=== PATIENT | female | born 1970 | race Caucasian/White ===

== ENCOUNTER 2016-11-26 20:47 | Emergency (ER) ==
--- NOTE | 2016-11-26 20:51 | ED.PDOC ---
General ED Provider: Dr. DILLAN HUA-ER Chief Complaint: Hip Pain/Injury Stated Complaint: my hip has been hurting for 2 weeks Time Seen by Physician: 20:49 Mode of Arrival: Walk-In Information Source: Patient, Family Exam Limitations: No limitations Primary Care Provider: TROY MERCADO Nursing and Triage Documentation Reviewed and Agree: Yes Musculoskeletal Complaint Exam - Hip/Pelvis Complaint/Exam Location of Pain: Reports: Right, Hip Mechanism of Injury: Reports: No known trauma Onset/Duration: 2 weeks Symptoms Are: Still present Initial Severity: Mild Current Severity: Mild Location: Reports: Discrete (right hip) Character: Reports: Dull, Aching, Stiffness Aggravating: Reports: Movement, Weight bearing Alleviating: Reports: None Associated Signs and Symptoms: Denies: Swelling, Redness, Bruising, Fever, Weakness, Dizziness, Syncope, Abdominal pain, Knee pain Able to Bear Weight: Yes Septic Arthritis Risk Factors: Reports: None Pelvis Palpation: Stable Hip/Pelvis Findings: Absent: Extremity shortened, Swelling, Ecchymosis, Erythema , Warmth, Blisters Tenderness: Present: Right NV Bundle Intact Distal to Injury: Yes Differential Diagnoses: Bursitis, Fracture, Sprain, Strain Review of Systems - Review Of Systems Constitutional: Reports: No symptoms Eyes: Reports: No symptoms Ears, Nose, Mouth, Throat: Reports: No symptoms Respiratory: Reports: No symptoms Cardiac: Reports: No symptoms GI: Reports: No symptoms : Reports: No symptoms Musculoskeletal: Reports: Joint pain Skin: Reports: No symptoms Neurological: Reports: No symptoms Endocrine: Reports: No symptoms Hematologic/Lymphatic: Reports: No symptoms All Other Systems: Reviewed and Negative Past Medical History - Past Medical History Endocrine: Reports: Unknown Cardiovascular: Reports: Unknown Respiratory: Reports: Unknown Hematological: Reports: Unknown Gastrointestinal: Reports: Unknown Genitourinary: Reports: Unknown Neuro/Psych: Reports: Unknown Musculoskeletal: Reports: Unknown Cancer: Reports: Unknown - Surgical History General Surgical History: Reports: Tubal ligation - Family History Family History: Reports: Unknown - Social History Smoking Status: Unknown if ever smoked Hx Substance Use: No Lives: With family Physical Exam - Physical Exam Appearance: Well-appearing, No pain distress, Well-nourished Pain Distress: Mild Eyes: JOHN ENT: Ears normal, Nose normal, Oropharynx normal Neck: Supple Respiratory: Airway patent, Breath sounds clear, Breath sounds equal, Respirations nonlabored Cardiovascular: RRR, Pulses normal, No rub, No murmur GI/: Soft, Nontender, No masses, Bowel sounds normal, No Organomegaly Musculoskeletal: Normal strength, ROM intact, No edema, No calf tenderness Skin: Warm, Dry, Normal color Neurological: Sensation intact, Motor intact, Reflexes intact, Cranial nerves intact, Alert, Oriented Psychiatric: Affect appropriate, Mood appropriate Interpretation - Radiology Interpretation Radiology Interpretation By: Radiologist Radiology Results: Positive Critical Care Note - Critical Care Note Total Time (mins): 0 Course - Course Orders, Labs, Meds: Orders Category Date Time Status CT PELVIS W/O CONTRAST Stat RADS 11/26/16 20:48 Completed Vital Signs: Temp Pulse Resp BP Pulse Ox 11/26/16 20:48 98.1 F 86 20 148/89 H 96 Departure - Departure Time of Disposition: 21:34 Disposition: HOME SELF-CARE Discharge Problem: Hip pain Instructions: Hip Pain (ED) Condition: Good Pt referred to PMD for follow-up: Yes Additional Instructions: toradol 10mg qid prn pain #16--f/u with pcp Allergies/Adverse Reactions: Allergies codeine Allergy (Intermediate, Verified 11/26/16 20:56) ITCHY Penicillins Adverse Reaction (Verified 11/26/16 20:56) Rash Home Medications: Ambulatory Orders Metoprolol Succinate 25 mg PO BID 10/22/15 Pravachol 20 mg PO DAILY 10/22/15 Disposition Discussed With: Patient
[2016-11-26 20:57] VITALS: BP 148/89; TEMP 98.1; BMI 36.6
--- NOTE | 2016-11-26 21:30 | CT ---
EXAM: CT scan pelvis without contrast HISTORY: Right hip pain COMPARISON: None. FINDINGS: Contiguous axial images obtained through the pelvis without contrast utilizing 3-mm colli mation. Sagittal and coronal reconstructions were imaged and reviewed.. Facet arthropathy is seen within the lower lumbar spine. SI joints and hip joints are maintained. There is umbilical hernia containing only fat. Atherosclerotic changes are seen involving the aorta without aneurysm. There is no evidence of free fluid or inflammatory changes. IMPRESSION: Facet arthropathy lower lumbar spine. Hip joints SI joints are intact.
== END 2016-11-26 22:22 | disposition home or self-care (01) ==
LOC: ED 20:47
DX: M25.551 Pain in right hip (principal)
CPT/HCPCS: 99282

== ENCOUNTER 2016-11-30 10:44 | Outpatient (CLI) ==
[2016-11-30 13:06] LABS: ALBUMIN 3.3 g/dL (3.4-5.0); ANION GAP 13.6; BILIRUBIN,TOTAL 0.42 mg/dL (0.00-1.20); BUN/CREATININE RATIO 15.58; CALCIUM 9.3 mg/dL (8.2-10.2); CHOL/HDL RATIO 3.5 (4.5-5.5); CREATININE 0.77 mg/dL (0.60-1.30); POTASSIUM 3.6 mmol/L (3.5-5.10); TOTAL PROTEIN 6.6 g/dL (6.4-8.2)
== END 2016-11-30 10:45 | disposition home or self-care (01) ==
LOC: LAB 10:44
PROVIDERS: ATTEND Nurse Practitioner Family
DX: E78.5 Hyperlipidemia, unspecified (principal)
CPT/HCPCS: 36415; 80053; 80061

== ENCOUNTER 2016-12-01 07:53 | Outpatient (CLI) ==
--- NOTE | 2016-12-01 10:43 | MRI ---
EXAM: MRI right hip without contrast. HISTORY: Pain and grinding right hip. No known injury. No right hip surgery.. COMPARISON: CT pelvis 11/26/2016.. TECHNIQUE: Using a body phased array coil on a high field strength magnet transaxial and coronal sh ort TR/TE non-fat suppressed, transaxial long TR/TE fat-suppressed and coronal STIR large field of v iew imaging obtained through level both hip joints. Additional sagittal long TR/TE non-fat suppress ed smaller field of view imaging obtained through level of the right hip joint only. No intravenous or intra-articular gadolinium contrast administered.. FINDINGS: Both sacroiliac joints intact without diastases or bone ankylosis. In correlation there is mild degenerative arthrosis/osteoarthrosis. 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 Overall bone marrow signal intensity of the sacrum, pelvis, and proximal fe zuniga shows no acute fracture or lytic or blastic lesion. Both femoral heads seated with normal lateral coverage and femoral heads sphericity. Physiologic am ount fluid both hip joints. No joint centered subchondral bone marrow edema or bone erosions. No l arge surrounding paralabral cysts. No greater trochanteric or iliopsoas bursitis.. No acute muscle strain identified. Specifically involving the right hip the joint spaces concentric. Both proximal hamstring origins intact. Course of both the right and left sciatic nerves within nor mal limit. No enlarged inguinal lymphadenopathy or bowel herniation. No enlarged pelvic sidewall l ymphadenopathy. No pelvic ascites. Uterus present as are both ovaries with tiny bilateral simple o varian cysts. Bladder decompressed.. IMPRESSION: No acute fracture, stress fracture or avascular necrosis involving either hip. No hip effusions, surrounding bursitis or acute muscle strain. 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
== END 2016-12-01 07:54 | disposition home or self-care (01) ==
LOC: RAD 07:53
PROVIDERS: ATTEND Nurse Practitioner Family
DX: M25.551 Pain in right hip (principal); M12.88 Other specific arthropathies, not elsewhere classified, other specified site

== ENCOUNTER 2017-08-31 08:33 | Outpatient (CLI) ==
[2017-08-31 08:50] LABS: BASOPHILS % (AUTO) 0.3 % (0.0-3.0); EOSINOPHILS # (AUTO) 0.1 K/ul (0.0-0.7); EOSINOPHILS % (AUTO) 1.2 % (0.0-7.0); HEMATOCRIT 37.7 % (37.0-47.0); HEMOGLOBIN 12.5 g/dl (12.0-16.0); IMMATURE GRANULOCYTE % (AUTO) 0.2 % (0.0-5.0); LYMPHOCYTES # (AUTO) 2.4 K/uL (0.60-3.4); LYMPHOCYTES % (AUTO) 25.1 (10.0-50.0); MEAN CORPUSCULAR HEMOGLOBIN 29.1 pg (27.0-31.0); MEAN CORPUSCULAR HGB CONC 33.2 (31.8-35.4); MEAN CORPUSCULAR VOLUME 87.9 fl (81.0-99.0); MONOCYTES # (AUTO) 0.7 K/uL (0.4-2.0); MONOCYTES % (AUTO) 7.7 (0-10); NEUTROPHILS # (AUTO) 6.2 K/ul (2.0-6.9); NEUTROPHILS % (AUTO) 65.5; PLATELET COUNT 245 10^3/uL (140-440); RED BLOOD COUNT 4.29 10^6/ul (4.20-5.40); WHITE BLOOD COUNT 9.38 K/ul (4.6-10.2)
[2017-08-31 09:29] LABS: ALBUMIN 2.8 g/dL (3.4-5.0); ALBUMIN/GLOBULIN RATIO 0.72; BILIRUBIN,TOTAL 0.59 mg/dL (0.00-1.20); BUN/CREATININE RATIO 14.28; CALCIUM 9.3 mg/dL (8.2-10.2); CHOL/HDL RATIO 2.6 (4.5-5.5); CREATININE 0.7 mg/dL (0.60-1.30); TOTAL PROTEIN 6.7 g/dL (6.4-8.2)
[2017-09-01 06:13] LABS: FOLLICLE STIMULATING HORMONE 19.6 mIU/mL (.); PROGESTERONE < 0.1 ng/mL (.)
[2017-09-01 07:26] LABS: LUTEINIZING HORMONE 19.4 mIU/mL (.)
== END 2017-08-31 08:34 | disposition home or self-care (01) ==
LOC: LAB 08:33
PROVIDERS: ATTEND Nurse Practitioner Family
DX: I49.9 Cardiac arrhythmia, unspecified (principal); E78.2 Mixed hyperlipidemia; N92.6 Irregular menstruation, unspecified; R06.02 Shortness of breath; Z95.1 Presence of aortocoronary bypass graft
CPT/HCPCS: 36415; 80053; 80061; 82672; 83001; 83002; 83880; 84144; 84443; 85025; 93005; 93010

== ENCOUNTER 2018-09-18 08:51 | Outpatient (CLI) | END 2018-09-18 08:52 | disposition home or self-care (01) | LOC: LAB 08:51 | PROVIDERS: ATTEND Nurse Practitioner Family | DX: E78.5 Hyperlipidemia, unspecified (principal); E66.9 Obesity, unspecified; Z95.1 Presence of aortocoronary bypass graft; I49.9 Cardiac arrhythmia, unspecified | CPT/HCPCS: 36415; 80053; 80061; 84443; 85025; 93005; 93010 ==

== ENCOUNTER 2019-07-08 08:38 | Outpatient (CLI) | END 2019-07-08 08:39 | disposition home or self-care (01) | LOC: RHC-LAB 08:38 | PROVIDERS: ATTEND Nurse Practitioner Family | DX: I10 Essential (primary) hypertension (principal); E78.2 Mixed hyperlipidemia | CPT/HCPCS: 36415; 80053; 80061; 85025 ==